=== PATIENT | female | born 1975 | race Hispanic/Latino ===

== ENCOUNTER 2017-04-13 12:34 | Emergency (ER) | payer OTHER ==
[~2017-04-13] VITALS: Ht 167.6 cm; Wt 105.6 kg
[~2017-04-13 12:34] MED LIST: ADDERALL20 MG PO; AMPHETAMINE SAL20 MG PO; EFFEXOR XR150 MG PO; GABAPENTIN300 MG PO; GABAPENTIN600 MG PO; LAMICTAL100 MG PO; LAMICTAL200 MG PO; LAMOTRIGINE100 MG PO; LAMOTRIGINE200 MG PO; LEVOFLOXACIN750 MG PO; NEURONTIN300 MG PO; NORCO 5/3251 TABLET PO; RESTORIL30 MG PO; TEMAZEPAM15 MG PO; VENLAFAXINE HC150 M1 PO; WELLBUTRIN XL300 MG PO; ZOLPIDEM TARTRAT5 MG PO
[2017-04-13] MEDS ORDERED: MOTRIN600 MG PO (14:48)
[2017-04-13 15:00] VITALS: BP 137/86
== END 2017-04-13 15:20 | disposition home or self-care (01) ==
LOC: EME 12:34
DX: S63.614A Unspecified sprain of right ring finger, initial encounter (principal); W01.0XXA Fall on same level from slipping, tripping and stumbling without subsequent striking against object, initial encounter
CPT/HCPCS: 73140; 99281; 99284